=== PATIENT | male | born 1960 | race Caucasian/White ===

== ENCOUNTER → 2020-05-20 | Outpatient (CLI) | payer BC ==
--- NOTE | 2020-05-20 10:07 | XR ---
EXAMINATION TYPE: XR chest 2V DATE OF EXAM: 05/20/2020 COMPARISON: NONE HISTORY: Chest pain and cough. Shortness of breath. TECHNIQUE: Frontal and lateral views of the chest are obtained. FINDINGS: Background underlying emphysematous change suspected. Peripheral left hilar curvilinear de nse opacification with left-sided volume loss as there is tracheal shift. Patient is also slightly ro tated to the left on current study. There is hyperexpanded right lung noted. There is small left pleu ral fluid collection inferiorly. Hyperexpanded right lung is clear. The cardiac silhouette size is wi thin normal limits. Left central opacity noted. There is silhouetting along the major fissure on the lateral view. The osseous structures are intact. IMPRESSION: There is small left pleural effusion. There is left upper lung volume loss with suspecte d suprahilar mass and postobstructive atelectatic change along with loculated left upper lung pleural fluid collection. Underlying neoplasm needs to be strongly considered. Follow-up contrast enhanced c hest CT is advised. Results communicated to ordering physician via telephone at time of dictation.
[2020-05-20 12:11] LABS: HCT 43.8 % (39.0-53.0); HGB 13.6 gm/dL (13.0-17.5); MCH 29.1 pg (25.0-35.0); MCV 94.1 fL (80.0-100.0); Mean Platelet Volume 7.3; Platelet Count 487 k/uL (150-450); RBC 4.66 m/uL (4.30-5.90); RDW 12.5 % (11.5-15.5); WBC 7.6 k/uL (3.8-10.6)
[2020-05-20 18:06] LABS: Erythrocyte Sedimentation Rate 63 mm/Hr (0-20)
[2020-05-20 18:14] LABS: African American GFR (CKD) 107.2 (60.0-200.0); Albumin 3.9 g/dL (3.80-4.90); Albumin/Globulin Ratio 1.22 (1.60-3.17); Anion Gap 10.3 mmol/L (4.00-12.00); BUN/Creat Ratio 12.22 Ratio (12.00-20.00); Calcium 9.2 mg/dL (8.7-10.3); Carbon Dioxide 26.7 mmol/L (21.6-31.8); Globulin 3.2 g/dL (1.6-3.3); Non-African American GFR(CKD) 92.5 (60.0-200.0); Potassium 4.9 mmol/L (3.5-5.5); Total Bilirubin 0.2 mg/dL (0.2-1.2); Total Protein 7.1 g/dL (6.2-8.2)
[2020-05-20 22:20] LABS: Hemoglobin A1C 5.6 % (4.0-6.0)
== END | disposition home or self-care (01) ==
LOC: LABWHC1 09:21 → EDSEX 09:21
PROVIDERS: ATTEND Family Medicine
DX: R07.9 Chest pain, unspecified (principal); R05 Cough; J90 Pleural effusion, not elsewhere classified
CPT/HCPCS: 36415; 71046; 80053; 83036; 84443; 85027; 85652

== ENCOUNTER → 2020-05-26 | Outpatient (CLI) | payer BC ==
--- NOTE | 2020-05-26 16:01 | CT ---
EXAMINATION TYPE: CT chest w con DATE OF EXAM: 05/26/2020 COMPARISON: Chest x-ray 05/20/2020 HISTORY: Abnormal CXR CT DLP: 236.2 mGycm, Automated exposure control for dose reduction was used. CONTRAST: Performed injected with 100 mL of Isovue 300. TECHNIQUE: Axial images were obtained at 5 mm thick sections. Reconstructed images are reviewed on [facility] computer in the coronal plane. FINDINGS: Portion of the thyroid visualized is normal. There is collapse of the left upper lobe with possible ill-defined mass at the left hilum. This is en casing the lingular and left lower lobe pulmonary arteries. This is estimated to measure 12.0 x 7.3 c m. Loculated pleural effusion is present on the left. A 3.0 cm transverse dimension lymph node may be adjacent to the aortic arch. This could be direct ex tension from the suspected mass. Left axillary lymphadenopathy is evident. There is enlarged subcarin al lymph node present measuring 1.3 cm. The ascending aorta diameter at the level of the main pulmonary artery is 3.3 cm. The main pulmonary artery diameter at the bifurcation is 2.[address] sections are obtained through the upper abdomen. Abdomen is essentially unremarkable. IMPRESSIONS: 1. Masslike area within the left perihilar region with an adjacent large lymph node at the level of t aortic arch. This is encasing the pulmonary arteries and contributing to left upper lobe atelectas is. 2. Small loculated left pleural effusion.
== END | disposition home or self-care (01) ==
LOC: RADCTMAIN 10:20
PROVIDERS: ATTEND Family Medicine
DX: J90 Pleural effusion, not elsewhere classified (principal); J98.11 Atelectasis; R59.0 Localized enlarged lymph nodes; C34.30 Malignant neoplasm of lower lobe, unspecified bronchus or lung
CPT/HCPCS: 71260; Q9967